=== PATIENT | male | born 1945 | race Caucasian/White ===

== ENCOUNTER 2021-07-21 10:33 | Emergency (ER) | payer SELFPAY ==
[~2021-07-21] VITALS: Ht 188 cm; Wt 87.3 kg
--- NOTE | 2021-07-21 10:38 | NUR ---
To CT at this time, Dr Ward at bedside.
[2021-07-21 11:04] LABS: BASOPHILS # (AUTO) 0.1 X10'3 (0-0.2); EOSINOPHILS # (AUTO) 0.1 X10'3 (0-0.9); EOSINOPHILS % (AUTO) 1.1 % (0-6); HEMATOCRIT 39.2 % (42.0-52.0); HEMOGLOBIN 13.6 g/dl (14.0-17.9); LYMPHOCYTES # (AUTO) 1.4 X10'3 (1.1-4.8); LYMPHOCYTES % (AUTO) 16.9 % (21-51); MEAN CORPUSCULAR HEMOGLOBIN 31.4 PG (27.0-31.0); MEAN CORPUSCULAR HGB CONC 34.7 g/dL (33.0-36.5); MEAN CORPUSCULAR VOLUME 90.7 FL (78-98); MEAN PLATELET VOLUME 7.7 FL (7.4-10.4); MONOCYTES # (AUTO) 0.4 X10'3 (0-0.9); MONOCYTES % (AUTO) 4.8 % (2-12); NEUTROPHILS # (AUTO) 6.3 X10'3 (1.8-7.7); NEUTROPHILS % (AUTO) 76.2 % (42-75); PLATELET COUNT 198 X10'3 (140-440); RED BLOOD COUNT 4.32 X10'6 (4.70-6.10); RED CELL DISTRIBUTION WIDTH 13.2 % (11.5-14.5); WHITE BLOOD COUNT 8.3 X10'3 (4.5-11.0)
[2021-07-21 11:14] LABS: APTT 23 SECONDS (22-32)
[2021-07-21 11:16] LABS: ALANINE AMINOTRANSFERASE 17 U/L (12-78); ALBUMIN 3.7 G/DL (3.4-5.0); ALBUMIN/GLOBULIN RATIO 1.1 (1.1-1.5); ALKALINE PHOSPHATASE 69 IU/L (46-116); ANION GAP 12 (8-16); ASPARTATE AMINO TRANSFERASE 15 U/L (10-37); BILIRUBIN,TOTAL 0.6 MG/DL (0.1-1.0); BLOOD UREA NITROGEN 18 MG/DL (7-18); BUN/CREATININE RATIO 14.1 (5.4-32.0); CALCIUM 9.4 MG/DL (8.5-10.1); CHLORIDE 104 MMOL/L (99-107); CREATININE 1.28 MG/DL (0.60-1.10); GLUCOSE 199 MG/DL (70-104); POTASSIUM 4.5 MMOL/L (3.5-5.1); SODIUM 141 MMOL/L (135-145); TOTAL CARBON DIOXIDE 24.9 MMOL/L (24-32); TOTAL PROTEIN 7.2 G/DL (6.4-8.2); eGFR 55 ML/MIN
--- NOTE | 2021-07-21 13:26 | NUR ---
Pamela ([facility]) Conservator [phone]
[2021-07-21 14:25] VITALS: BP 15/76
== END 2021-07-21 14:26 | disposition home or self-care (01) ==
LOC: ER 10:34
DX: F03.90 Unspecified dementia, unspecified severity, without behavioral disturbance, psychotic disturbance, mood disturbance, and anxiety (principal); R26.9 Unspecified abnormalities of gait and mobility; G91.9 Hydrocephalus, unspecified; R53.1 Weakness; R29.810 Facial weakness; W19.XXXA Unspecified fall, initial encounter; Y93.89 Activity, other specified; Y92.89 Other specified places as the place of occurrence of the external cause; Y99.8 Other external cause status
CPT/HCPCS: 36415; 70450; 71045; 80053; 85025; 85610; 85730; 93005; 99285

== ENCOUNTER 2022-03-18 09:27 | Emergency (ER) | payer MEDICARE ==
[~2022-03-18] VITALS: Ht 177.8 cm; Wt 70.0 kg
[~2022-03-18 09:27] MED LIST: ASPI-611 PO; ATOR20TA66 PO; CARB15DR OP; DONE-46 PO; IRBE150T24 PO; LANTUS SQ; METF-438 PO; PRED5DRO23 EACHEYE; QUET25TA36 PO; SERT-432 PO
[2022-03-18] MEDS ORDERED: normal saline 1000ML IV soln IVB ONE ×2 (09:35→16:43)
[2022-03-18] MEDS ORDERED: famotidine/PF 10 mg/ml inj IV ONE (09:35)
[2022-03-18] MEDS ORDERED: ondansetron/PF 4mg/2ml inj IV ONE (09:35)
[2022-03-18 10:11] LABS: BASOPHILS # (AUTO) 0.1 X10'3 (0-0.2); BASOPHILS % (AUTO) 1.3 % (0-1); EOSINOPHILS # (AUTO) 0.1 X10'3 (0-0.9); EOSINOPHILS % (AUTO) 1.3 % (0-6); HEMATOCRIT 39.9 % (42.0-52.0); HEMOGLOBIN 13.6 g/dl (14.0-17.9); LYMPHOCYTES # (AUTO) 1.4 X10'3 (1.1-4.8); LYMPHOCYTES % (AUTO) 16.4 % (21-51); MEAN CORPUSCULAR HGB CONC 34.1 g/dL (33.0-36.5); MEAN CORPUSCULAR VOLUME 90.9 FL (78-98); MEAN PLATELET VOLUME 7.9 FL (7.4-10.4); MONOCYTES # (AUTO) 0.4 X10'3 (0-0.9); MONOCYTES % (AUTO) 4.7 % (2-12); NEUTROPHILS # (AUTO) 6.3 X10'3 (1.8-7.7); NEUTROPHILS % (AUTO) 76.3 % (42-75); PLATELET COUNT 272 X10'3 (140-440); RED BLOOD COUNT 4.38 X10'6 (4.70-6.10); RED CELL DISTRIBUTION WIDTH 13.6 % (11.5-14.5); WHITE BLOOD COUNT 8.3 X10'3 (4.5-11.0)
[2022-03-18 10:25] LABS: AMMONIA < 10 UMOL/L (11-32)
[2022-03-18 10:28] LABS: ALANINE AMINOTRANSFERASE 23 U/L (12-78); ALBUMIN 4.1 G/DL (3.4-5.0); ALBUMIN/GLOBULIN RATIO 1.1 (1.1-1.5); ALKALINE PHOSPHATASE 105 IU/L (46-116); ANION GAP 9 (8-16); ASPARTATE AMINO TRANSFERASE 17 U/L (10-37); BILIRUBIN,TOTAL 0.5 MG/DL (0.1-1.0); BLOOD UREA NITROGEN 43 MG/DL (7-18); BUN/CREATININE RATIO 17.5 (5.4-32.0); CALCIUM 9.6 MG/DL (8.5-10.1); CHLORIDE 102 MMOL/L (99-107); CREATININE 2.46 MG/DL (0.60-1.10); GLUCOSE 124 MG/DL (70-104); POTASSIUM 5.1 MMOL/L (3.5-5.1); SODIUM 138 MMOL/L (135-145); TOTAL CARBON DIOXIDE 26.6 MMOL/L (24-32); eGFR 26 ML/MIN
[2022-03-18 10:32] LABS: LACTIC SEPSIS 0.8 MMOL/L (0.4-2.0)
[2022-03-18 11:14] LABS: CLARITY,URINE CLEAR (Clear); COLOR,URINE YELLOW (Yellow); GLUCOSE, URINE NEGATIVE (Neg); KETONES,URINE 15 mg/dl (Neg); LEUKOCYTE ESTERASE ,URINE NEGATIVE (Neg); NITRITES, URINE NEGATIVE (Neg); OCCULT BLOOD,URINE NEGATIVE (Neg); PH,URINE 5.5 (4.8-8.0); PROTEIN,URINE NEGATIVE (Neg); UROBILINOGEN,URINE 0.2 E.U/dL (0.2-1.0)
[2022-03-18 11:16] LABS: UA COLLECTION TYPE STRAIGHT CATH
--- NOTE | 2022-03-18 13:09 | NUR ---
pt moved from ER bed 1 to ER bed 16 so he is in direct view of RN station
[2022-03-18 16:00] VITALS: BP 158/82
[2022-03-18] MEDS ORDERED: INSU100V43 SQ (16:57)
[2022-03-18] MEDS ORDERED: GUAI100L37 PO (17:00)
[2022-03-18] MEDS ORDERED: METO-292 PO (17:00)
[2022-03-18] MEDS ORDERED: DOCU283E RC (17:00)
[2022-03-18] MEDS ORDERED: DIAZ2TAB3 PO (17:01)
[2022-03-18] MEDS ORDERED: ALBU1.257 NEB (17:05)
[2022-03-18] MEDS ORDERED: POLY17PO59 PO (17:05)
[2022-03-18] MEDS ORDERED: ATR0.5NEB NEB (17:05)
[2022-03-18] MEDS ORDERED: NITR0.4T51 SL (17:05)
[2022-03-18] MEDS ORDERED: TRAM50TA2 PO (17:06)
[2022-03-18] MEDS ORDERED: ZOFRAN IV (17:07)
[2022-03-18] MEDS ORDERED: MELA3TAB39 PO (17:08)
[2022-03-18] MEDS ORDERED: DONE-46 PO (17:26)
[2022-03-18] MEDS ORDERED: ATOR20TA66 PO (17:26)
[2022-03-18] MEDS ORDERED: LANTUS SQ (17:26)
[2022-03-18] MEDS ORDERED: IRBE150T24 PO (17:27)
[2022-03-18] MEDS ORDERED: METF-438 PO (17:27)
[2022-03-18] MEDS ORDERED: QUET25TA PO (17:27)
[2022-03-18] MEDS ORDERED: SERT-432 PO (17:27)
[2022-03-18] MEDS ORDERED: ONDA4TAB12 PO (17:38)
--- NOTE | 2022-03-18 17:50 | NUR ---
Report called to tanner Martinez at [facility]. Per Michelle, Pt's eneida Isidro called to inform facility that pt will be arriving via [employer] "within the hour"
--- NOTE | 2022-03-18 17:54 | NUR ---
Tu called and transportation confirmed. Sanna is setting up transport back to facility.
== END 2022-03-18 18:51 | disposition home or self-care (01) ==
LOC: ER 09:27
DX: N17.9 Acute kidney failure, unspecified (principal); Z20.822 Contact with and (suspected) exposure to COVID-19; R11.2 Nausea with vomiting, unspecified; G91.2 (Idiopathic) normal pressure hydrocephalus; R53.1 Weakness; R06.6 Hiccough; E86.0 Dehydration; Z86.73 Personal history of transient ischemic attack (TIA), and cerebral infarction without residual deficits; Z79.4 Long term (current) use of insulin; Z79.899 Other long term (current) drug therapy
CPT/HCPCS: 36415; 70450; 71045; 80053; 81003; 82140; 82948; 83605; 84484; 85025; 87040; 87502; 87503; 87811; 93005; 96361; 96374; 96375; 99285; J2405; J3490; J7030